=== PATIENT | female | born 1975 ===

== ENCOUNTER 2024-12-09 22:32 | Emergency (ER) | payer MEDICAID, SELFPAY ==
[2024-12-09 23:12] VITALS: BP 135/77; BP 155/88; PULSE 79; PULSE 88; RESP 18; TEMP 36.8; O2SAT 97; O2SAT 98; BMI 24.2
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
[2024-12-10] MEDS: Diphth,Pertus(ACell),Tet Adult 0.5 ML SYRINGE IM (01:13)
[2024-12-10] MEDS: Bacitracin Oint 0.9 GM PACKET 1 APPL TOPICAL (01:14)
[2024-12-10] MEDS: Ketorolac Tromethamine 30 MG/ML VIAL IVPUSH (01:14)
[2024-12-10 01:20] VITALS: BP 110/71; PULSE 61; RESP 16; TEMP 36.6; O2SAT 97
== END 2024-12-10 06:21 | disposition home or self-care (01) ==
PROVIDERS: Emergency Provider Emergency Medicine
DX: T23.232A Burn of second degree of multiple left fingers (nail), not including thumb, initial encounter (principal); T23.231A Burn of second degree of multiple right fingers (nail), not including thumb, initial encounter; X19.XXXA Contact with other heat and hot substances, initial encounter; Y93.9 Activity, unspecified; Y92.009 Unspecified place in unspecified non-institutional (private) residence as the place of occurrence of the external cause; Y99.9 Unspecified external cause status; Z23 Encounter for immunization
CPT/HCPCS: 16000; 90471; 90715; 96374; 99284; J1885